=== PATIENT | male | born 1955 | race Two or more races ===

== ENCOUNTER 2016-11-11 05:28 | Inpatient (IN) | payer OTHER ==
[~2016-11-11] VITALS: Ht 167.6 cm; Wt 70.3 kg
[2016-11-11] VITALS (14 sets, daily range): BP systolic 109–126; BP diastolic 53–80
[~2016-11-11 05:28] MED LIST: IBUPROFEN600 MG ORAL; OMEPRAZOLE20 M2 ORAL
[2016-11-11] MEDS ORDERED: Thrombin 5000 units TOPIC ONE (06:43)
[2016-11-11] MEDS ORDERED: Thrombin 5000 units spray kit TOPIC ONE (06:44)
[2016-11-11] MEDS ORDERED: Gelfoam Absorbable 1gm powder pkt TOPIC ONE (06:44)
[2016-11-11] MEDS ORDERED: Bacitracin 50000 Units Vial ONE (06:44)
[2016-11-11] MEDS ORDERED: Bupivacaine w/Epi 0.5% 30ml Vial INJ ONE (06:44)
--- NOTE | 2016-11-11 06:46 | Anethesia Preoperative Eval ---
Anesthesia Pre-op PMH/ROS General Date of Evaluation: Nov 11, 2016 Time of Evaluation: 07:01 Anesthesiologist: Martita ASA Score: ASA 3 Mallampati Score Class I : Soft palate, uvula, fauces, pillars visible Class II: Soft palate, uvula, fauces visible Class III: Soft palate, base of uvula visible Class IV: Only hard plate visible Mallampati Classification: Class II Surgeon: Mary Alice Diagnosis: Back Pain Surgical Procedure: ALIF L5-S1 Anesthesia History: none Social History: current smoker Family History: no anesthesia problems Allergies: Coded Allergies: PENICILLINS (Verified Allergy, Unknown, 11/08/16) Medications: see eMAR Past Medical History Cardiovascular: Reports: other - HL Pulmonary: Reports: COPD Neurologic/Psychiatric: Reports: other - Seizure Anesthesia Pre-op Phys. Exam Physician Exam Last Vital Signs Date Time Temp Pulse Resp B/P Pulse Ox O2 Delivery O2 Flow Rate FiO2 11/11/16 06:05 99.7 77 18 121/79 97 Room Air Constitutional: NAD Neurologic: CN 2-12 intact Cardiovascular: RRR Respiratory: CTA Gastrointestinal: S/NT/ND Airway Exam Mallampati Score: Class II MO: limited ROM: limited Teeth: intact Anesthesia Pre-op A/P Risk Assessment & Plan Assessment: ASA 2 Plan: GA, BIS, Glidescope Status Change Before Surgery: No Pre-Antibiotics Dru Grams Ancef IV Given Within 1 Hr of Incision: Yes Time Given: 07:14 Isaaih Anders MD Nov 11, 2016 06:46
[2016-11-11] MEDS ORDERED: LR 1000ml 1,000 ML IVLG SCH (06:49)
--- NOTE | 2016-11-11 06:52 | Immediate Post-Op Evaluation ---
Immediate Post-Op Evalulation Immediate Post-Op Evalulation Procedure: ALIF L5-S1 Date of Evaluation: Nov 11, 2016 Time of Evaluation: 09:15 IV Fluids: 1000 LR Blood Products: 0 Estimated Blood Loss: 25 Urinary Output: 200 Blood Pressure Systolic: 126 Blood Pressure Diastolic: 61 Pulse Rate: 74 Respiratory Rate: 16 O2 Sat by Pulse Oximetry: 100 Temperature (Fahrenheit): 97.8 Pain Score (1-10): 3 Nausea: No Vomiting: No Complications 0 Patient Status: awake, reacts, patent, extubated, none Hydration Status: adequate Dru grams Ancef IV Given Within 1 Hr of Incision: Yes Time Given: 07:14 Isaiah Anders MD Nov 11, 2016 06:52
[2016-11-11] MEDS ORDERED: Zemuron 50mg/5ml Inj IV ONE (07:00)
[2016-11-11] MEDS ORDERED: Meperidine 25mg/ml Inj IV PRN (07:00)
[2016-11-11] MEDS ORDERED: Ketorolac 60mg Inj IV PRN (07:00)
[2016-11-11] MEDS ORDERED: LR 1000ml ONE (07:00)
[2016-11-11] MEDS ORDERED: NS Irrig 1000ml ONE (07:00)
[2016-11-11] MEDS ORDERED: Lidocaine 1% MPF 10mg/ml 5ml ONE (07:00)
[2016-11-11] MEDS ORDERED: Metoclopramide 10mg/2ml Inj IVP PRN (07:00)
[2016-11-11] MEDS ORDERED: LORazepam Inj 2mg/ml 1ml IV PRN (07:00)
[2016-11-11] MEDS ORDERED: Atropine Inj 1mg/10ml Syr IV PRN (07:00)
[2016-11-11] MEDS ORDERED: Midazolam 2mg/2ml Inj ONE (07:00)
[2016-11-11] MEDS ORDERED: Midazolam 2mg/2ml Inj IVP PRN (07:00)
[2016-11-11] MEDS ORDERED: Glycopyrrolate 0.2mg/ml 1ml Vial ONE (07:00)
[2016-11-11] MEDS ORDERED: Sterile Water Irrig 1000ml IRRIG ONE (07:00)
[2016-11-11] MEDS ORDERED: DiphenhydrAMINE 50mg/ml Inj IVP PRN ×2 (07:00→09:15)
[2016-11-11] MEDS ORDERED: Labetalol 5mg/ml 20ml vial IV PRN (07:00)
[2016-11-11] MEDS ORDERED: Neostigmine 1mg/ml 10ml Inj ONE (07:00)
[2016-11-11] MEDS ORDERED: Oxycodone/Acetaminophen 5-325 ORAL PRN (07:00)
[2016-11-11] MEDS ORDERED: fentaNYL 250mcg/5ml ONE (07:00)
[2016-11-11] MEDS ORDERED: Propofol 10mg/ml 100ml btl IV ONE (07:00)
[2016-11-11] MEDS ORDERED: Norco 7.5mg/325mg tab ORAL PRN (07:00)
[2016-11-11] MEDS ORDERED: Ketorolac 30mg Inj IV PRN (07:00)
[2016-11-11] MEDS ORDERED: Hydromorphone 0.5mg/0.5ml inj IVP PRN (07:00)
[2016-11-11] MEDS ORDERED: Labetalol 5mg/ml 20ml vial IV ONE (07:00)
[2016-11-11] MEDS ORDERED: fentaNYL 100 mcg/2 mL IV PRN (07:00)
[2016-11-11] MEDS ORDERED: Dexamethasone 4mg/ml vial ONE (07:00)
[2016-11-11] MEDS ORDERED: Norco 5mg/325mg tab ORAL PRN (07:00)
--- NOTE | 2016-11-11 07:04 | Pre-Procedure Note/Attestation ---
Pre-Procedure Note/Attestation Complete Prior to Procedure Planned Procedure: not applicable Procedure Narrative: For ALIF L5/S1 for L5/S1 disc degeneration with instability Indications for Procedure Pre-Operative Diagnosis: L5/S1 disc degeneration with instability Attestation I attest that I discussed the nature of the procedure; its benefits; risks and complications; and alternatives (and the risks and benefits of such alternatives ), prior to the procedure, with the patient (or the patient's legal product representative). I attest that, if there was a reasonable possibility of needing a blood transfusion, the patient (or the patient's legal product representative) was given the [facility] standardized written summary, pursuant to the [place] Blood Safety Act ([place] Health and Safety Code # 1645, as amended). I attest that I re-evaluated the patient just prior to the surgery and that there has been no change in the patient's H&P, except as documented below: ROSE MARY BARNETT Nov 11, 2016 07:04
[2016-11-11] MEDS ORDERED: ACETAMINOPHEN 1000 MG ONE (08:30)
--- NOTE | 2016-11-11 08:55 | Operative Note - PDOC ---
Operative Note Operative Note Chief Complaint: Low Bask and Left leg pain Pre-op Diagnosis: L5/S1 disc degeneration with instability Procedure: ALIF L5/S1 with Internal Fixation Post-op Diagnosis: same as pre-op Operative Findings: consistent w/pre-op dx studies Surgeon: Mary Alice Count Team Clerk: DWIGHT Pang Additional Surgeons: Gaby Small Anesthesiologist: JIMMY Barbosa Anesthesia: general Specimen: yes Complications: none Condition: stable Estimated Blood Loss: minimal Drains: none Implant(s) used?: Yes - Estella InFix: Medium 8, 3+6 degree and Estella DBROSE MARY RENTERIA Nov 11, 2016 08:55
[2016-11-11] MEDS ORDERED: Acetaminophen 650 MG SUPP RECTAL PRN (09:00)
[2016-11-11] MEDS ORDERED: Rate Change PCA 1 Each MISC PRN (09:15)
[2016-11-11] MEDS ORDERED: Naloxone 0.4mg/ml Inj IVP PRN (09:15)
[2016-11-11] MEDS ORDERED: LORazepam 1mg tab ORAL PRN (09:15)
[2016-11-11] MEDS: PCA HYDROmorphone 1mg/ml 30 ML IV PRN (09:30)
--- NOTE | 2016-11-11 10:28 | Operative Note - Dictated ---
DATE OF OPERATION: 11/11/2016 SURGEON: Jourdan Wheat M.D. CO-SURGEON: For vascular approach is Dr. Davis Small. DIGITAL PRINT OPERATOR: SHIRA Heath. ANESTHESIA: General endotracheal with arterial blood pressure monitoring Dr. Anders. PREOPERATIVE DIAGNOSIS: Disk herniation, loss of disc height, foraminal stenosis at L5-S1. POSTOPERATIVE DIAGNOSIS: Disk herniation, loss of disc height, foraminal stenosis at L5-S1. OPERATIVE PROCEDURE: Left pararectus retroperitoneal approach to the lumbar spine with vessel mobilization and retraction by Dr. Small using a table fixed reverse tip blade then an anterior annulotomy, nuclear diskectomy, partial vertebrectomy, bilateral neural foraminotomy and microneurolysis, open-reduction and internal fixation at L5-S1 using a medium size infix cage with 8 mm of height and 6+ 3 degrees of lordosis fusion using bone protein and autogenous bone. Monitoring for lower extremity vascular by pulse oximetry, use of image intensification for aid and identification level and placement of the cage. The patient was prepped and draped after induction of satisfactory general anesthesia, in the supine position. The lumbar spine at the lumbosacral level was exposed by Dr. Small. The anterior disc anulus was exposed from its anteromedial to anterolateral corner using reverse tip blades fixed to a table fixed frame. Center of the disc was marked and AP and lateral x-rays were taken to assess alignment and sagittal stability. The anterior anulus was then removed with a 10 blade and the nuclear disc substance and cartilaginous endplates at L5-S1 were sequentially removed from front to back using larger to smaller angled and straight curettes Kerrisons and pituitaries. A lordotic distraction plug was used beginning at 8 mg progressing to 12 in order to open the space and allow access progressively further posteriorly into the posterior osteophytic rim of the disc space was identified along with the PLL. There was a rolled osteophytes on the inferior posterior body 5 that was removed after releasing the PLL with a small Kerrison. A bilateral foraminotomy was done. All remnants of the disc anulus and PLL were removed. The space was measured with a 10 medium template, the center was determined and sagittal alignment was assessed. An 8 mm cage with medium foot plate was chosen 6+ 3 degrees of lordosis was added and the construct was tapped into place. Position was checked. The side struts were inserted and again the position was checked on both AP and lateral. The side struts were then cold welded. Bone protein and autogenous bone harvested during the decompression part of procedure was then placed between the 2 parallel endplates of the infix cage, which was well-positioned. The foramen was widely open at L5-S1 as compared to its appearance on plain x-ray prior to the operation the cage as well centered with good contact and both endplates with good reconstitution of disc space height. There was no significant bleeding. The wound was closed in layers including the anterior posterior rectus sheath subcutaneous and skin. The patient is placed in a bulky dressing, returned to recovery room in good condition. Jourdan Wheat M.D. DR: Kenia JOB#: [id number] CC:
--- NOTE | 2016-11-11 11:49 | Diagnostic Imaging Report ---
Indications: Back pain, lumbar fusion Technique: Procedure including fluoroscopy performed by Dr. Wheat. Portable intraoperative AP and lateral spot film images of the lower lumbar spine obtained. Findings: Comparison: None Initial image demonstrates localizing needle tip overlying the anterior margin of the L5-S1 disc space. Subsequent images demonstrate placement of fusion hardware within this disc space, well centered. IMPRESSION: Intraoperative changes as described
[2016-11-11] MEDS: ceFAZolin sod 1 GM in D5W 55 ML IV SCH ×2 (14:14→23:00)
--- NOTE | 2016-11-11 14:59 | 48 Hour Post Anesthesia Eval ---
Post Anesthesia Evaluation Procedure: ALIF L5-S1 Date of Evaluation: Nov 11, 2016 Time of Evaluation: 14:50 Blood Pressure Systolic: 111 0: 69 Pulse Rate: 91 Respiratory Rate: 18 Temperature (Fahrenheit): 96.0 O2 Sat by Pulse Oximetry: 98 Airway: patent Nausea: No Vomiting: No Pain Intensity: 2 Hydration Status: adequate Cardiopulmonary Status: Stable Mental Status/LOC: patient returned to baseline Follow-up Care/Observations: As per surgery Post-Anesthesia Complications: No anesthetic complication Follow-up care needed: N/A RAMIN KEYES M.D. Nov 11, 2016 14:59
[2016-11-11] MEDS: PCA shift volume MISC SCH ×2 (15:12→23:29)
[2016-11-12 00:01] VITALS: BP 110/53
[2016-11-12 04:00] VITALS: BP 106/59
[2016-11-12] MEDS: ceFAZolin sod 1 GM in D5W 55 ML IV SCH (06:05)
[2016-11-12] MEDS: PCA shift volume MISC SCH ×3 (07:02→23:10)
[2016-11-12 07:50] VITALS: BP 111/67
--- NOTE | 2016-11-12 09:07 | History & Physical ---
History and Physical History & Physicial 2- HP reviewed care noted d/w JOSEPHINE GIL Nov 12, 2016 09:07
--- NOTE | 2016-11-12 09:09 | General Progress Note ---
Assessment/Plan Assessment/Plan L5/S1 disc degeneration with instability ALIF L5/S1 with Internal Fixation Lumbar disc disease PLAN 1. incentive spirometry 2. SCD 3. PT evaluation and therapy 4. Hydration 5. Pain management 6. discharge once stable with outpatient follow up 7. advance diet per surgery Subjective Allergies: Coded Allergies: PENICILLINS (Verified Allergy, Unknown, 11/08/16) Subjective able to ambulate working with PT Objective Last 24 Hour Vital Signs Date Time Temp Pulse Resp B/P Pulse Ox O2 Delivery O2 Flow Rate FiO2 11/12/16 08:00 18 11/12/16 07:50 98.1 95 18 111/67 98 Room Air 11/12/16 04:00 97.7 91 20 106/59 93 Room Air 11/12/16 04:00 18 11/12/16 00:01 98.2 101 19 110/53 94 Room Air 11/12/16 00:00 18 11/11/16 20:00 100.0 109 18 109/65 95 Nasal Cannula 11/11/16 20:00 18 11/11/16 16:02 18 11/11/16 16:00 98.2 98 18 125/77 97 Nasal Cannula 11/11/16 14:59 91 18 98 11/11/16 12:00 18 11/11/16 11:53 96.0 91 18 111/69 98 Nasal Cannula 3.0 11/11/16 11:15 18 11/11/16 10:45 18 11/11/16 10:25 97.9 11/11/16 10:25 97.0 74 18 110/64 Nasal Cannula 3.0 11/11/16 10:15 97.9 75 15 116/73 16 Nasal Cannula 3.0 11/11/16 10:15 16 11/11/16 10:07 97.9 11/11/16 10:00 66 12 125/80 16 Nasal Cannula 3.0 11/11/16 10:00 12 11/11/16 10:00 97.8 11/11/16 09:50 67 11 110/65 16 Nasal Cannula 3.0 11/11/16 09:45 13 11/11/16 09:35 75 21 111/77 16 Nasal Cannula 3.0 11/11/16 09:33 11 11/11/16 09:25 69 21 114/74 100 Nasal Cannula 3.0 11/11/16 09:14 70 21 118/77 100 Simple Mask 6.0 11/11/16 09:09 73 15 123/78 100 Simple Mask 6.0 Intake and Output 11/11/16 11/12/16 19:00 07:00 Intake Total 1455 ml 755 ml Output Total 425 ml 1275 ml Balance 1030 ml -520 ml Intake IV Total 1455 ml 755 ml Output Urine Total 400 ml 1275 ml Estimated Blood Loss 25 ml Height (Feet): 5 Height (Inches): 6.00 Weight (Pounds): 155 Objective WDWN NAD clear breath sounds bilaterally without rhonchi or wheeze [id number] without MRG nontender no HSM no CCE nonfocal JOSEPHINE JJ Nov 12, 2016 09:09
[2016-11-12] MEDS: PCA HYDROmorphone 1mg/ml 30 ML IV PRN (10:15)
--- NOTE | 2016-11-12 10:25 | General Surgery Progress Note ---
General Surgery-Progress Note Subjective Procedure Performed ALIF L5/S1 with Internal Fixation Symptoms: improved Objective Last 24 Hour Vital Signs Date Time Temp Pulse Resp B/P Pulse Ox O2 Delivery O2 Flow Rate FiO2 11/12/16 08:00 18 11/12/16 07:50 98.1 95 18 111/67 98 Room Air 11/12/16 04:00 97.7 91 20 106/59 93 Room Air 11/12/16 04:00 18 11/12/16 00:01 98.2 101 19 110/53 94 Room Air 11/12/16 00:00 18 11/11/16 20:00 100.0 109 18 109/65 95 Nasal Cannula 11/11/16 20:00 18 11/11/16 16:02 18 11/11/16 16:00 98.2 98 18 125/77 97 Nasal Cannula 11/11/16 14:59 91 18 98 11/11/16 12:00 18 11/11/16 11:53 96.0 91 18 111/69 98 Nasal Cannula 3.0 11/11/16 11:15 18 11/11/16 10:45 18 11/11/16 10:25 97.9 11/11/16 10:25 97.0 74 18 110/64 Nasal Cannula 3.0 I&O Intake and Output 11/11/16 11/12/16 19:00 07:00 Intake Total 1455 ml 755 ml Output Total 425 ml 1275 ml Balance 1030 ml -520 ml Intake IV Total 1455 ml 755 ml Output Urine Total 400 ml 1275 ml Estimated Blood Loss 25 ml Dressing: dry Wound: clean Drains: none Additional Comments Patient up and walking. Needs to wear brace. PT working with patient. Not passing gas yet >> NPO. Minimal use of PASSENGER TIRE BUILDER overnight. Dr. Dumont following. ROSE MARY BARNETT Nov 12, 2016 10:25
[2016-11-12 12:00] VITALS: BP 144/70
[2016-11-12 15:50] VITALS: BP 126/78
[2016-11-12 20:00] VITALS: BP 116/81
[2016-11-13] VITALS: BP 113/73
[2016-11-13 04:00] VITALS: BP 125/78
[2016-11-13] MEDS: PCA shift volume MISC SCH (07:08)
[2016-11-13 08:14] VITALS: BP 136/76
[2016-11-13] MEDS ORDERED: Norco 7.5mg/325mg tab ORAL PRN ×2 (09:00)
[2016-11-13] MEDS ORDERED: HYDROmorphone 1mg/ml Carpuject SUBQ PRN (09:00)
[2016-11-13] MEDS ORDERED: Naloxone 0.4mg/ml Inj IVP PRN (09:00)
--- NOTE | 2016-11-13 10:14 | General Progress Note ---
Assessment/Plan Assessment/Plan L5/S1 disc degeneration with instability ALIF L5/S1 with Internal Fixation Lumbar disc disease PLAN 1. incentive spirometry 2. SCD 3. PT evaluation and therapy noted 4. wear brace 5. Pain management 6. discharge home 7. tolerating diet Subjective Allergies: Coded Allergies: PENICILLINS (Verified Allergy, Unknown, 11/08/16) Subjective able to ambulate working with PT tolerating po Objective Last 24 Hour Vital Signs Date Time Temp Pulse Resp B/P Pulse Ox O2 Delivery O2 Flow Rate FiO2 11/13/16 08:14 98.8 111 20 136/76 95 Room Air 95.0 11/13/16 08:00 18 11/13/16 04:00 99.1 95 18 125/78 97 Room Air 11/13/16 04:00 16 11/13/16 00:00 98.2 99 18 113/73 95 Room Air 11/13/16 00:00 18 11/12/16 20:06 18 11/12/16 20:00 98.6 95 16 116/81 100 Room Air 11/12/16 16:00 18 11/12/16 15:50 98.2 89 18 126/78 100 Room Air 11/12/16 12:00 18 11/12/16 12:00 97.6 91 20 144/70 98 Room Air Intake and Output 11/12/16 11/13/16 19:00 07:00 Intake Total 1200 ml 1920 ml Output Total 1400 ml 2250 ml Balance -200 ml -330 ml Intake Oral 500 ml 720 ml IV Total 700 ml 1200 ml Output Urine Total 1400 ml 2250 ml # Voids 3 Height (Feet): 5 Height (Inches): 6.00 Weight (Pounds): 155 Objective WDWN NAD clear breath sounds bilaterally without rhonchi or wheeze [id number] without MRG nontender no HSM NABS no CCE nonfocal JOSEPHINE JJ Nov 13, 2016 10:13
--- NOTE | 2016-11-13 10:31 | General Surgery Progress Note ---
General Surgery-Progress Note Subjective Procedure Performed ALIF L5/S1 with Internal Fixation Symptoms: improved, tolerating diet Objective Last 24 Hour Vital Signs Date Time Temp Pulse Resp B/P Pulse Ox O2 Delivery O2 Flow Rate FiO2 11/13/16 08:14 98.8 111 20 136/76 95 Room Air 95.0 11/13/16 08:00 18 11/13/16 04:00 99.1 95 18 125/78 97 Room Air 11/13/16 04:00 16 11/13/16 00:00 98.2 99 18 113/73 95 Room Air 11/13/16 00:00 18 11/12/16 20:06 18 11/12/16 20:00 98.6 95 16 116/81 100 Room Air 11/12/16 16:00 18 11/12/16 15:50 98.2 89 18 126/78 100 Room Air 11/12/16 12:00 18 11/12/16 12:00 97.6 91 20 144/70 98 Room Air I&O Intake and Output 11/12/16 11/13/16 19:00 07:00 Intake Total 1200 ml 1920 ml Output Total 1400 ml 2250 ml Balance -200 ml -330 ml Intake Oral 500 ml 720 ml IV Total 700 ml 1200 ml Output Urine Total 1400 ml 2250 ml # Voids 3 Dressing: dry Wound: clean Drains: none Additional Comments Patient taking regular diet. Has been released by Physical therapy and is ready for discharge to home. Dr. Julia colindres. ROSE MARY BARNETT Nov 13, 2016 10:31
[2016-11-13 12:36] VITALS: BP 123/79
--- NOTE | 2016-11-13 20:38 | Operative Note - Dictated ---
DATE OF OPERATION: 11/13/2016 VASCULAR SURGEON: Zach Small M.D. SPINE SURGEON: Jourdan Wheat M.D. PREOPERATIVE DIAGNOSIS: Degenerative disc disease. POSTOP DIAGNOSIS: Degenerative disc disease. PROCEDURE: Anterior retroperitoneal exposure of L5-S1 vertebral interspace. INDICATIONS: The patient is a very pleasant gentleman who is seen in my office prior to surgery. He has been scheduled for anterior fusion of L5-S1. He does not have any history of anterior abdominal surgery. No history of deep venous thrombosis or bleeding complications as described. He has been made aware of the risks of vascular surgery including possible need for blood transfusion, deep venous thrombosis, and bleeding complications. DESCRIPTION OF FINDINGS: A low transverse incision was used. A left retroperitoneal approach was used. There is no peritoneal or ureteral violation. There is no vascular injury. Exposure of L5-S1 was obtained below the iliac bifurcation with retraction of left iliac vessels superior and laterally. Both levels were confirmed using fluoroscopy. On completion, the peritoneum ureter intact. The iliac vessels were intact. The patient had palpable femoral and pedal pulses. Blood loss was less than 50 mL. DESCRIPTION OF PROCEDURE: The patient taken to the operative room, general anesthesia was used. IV antibiotics were given. The patient's abdomen was prepped and draped. Appropriate timeout procedures were taken. A transverse incision made just above the pubic symphysis. Flaps were raised superiorly. Anterior fascia was incised longitudinally in midline. A plane identified posterior to the left rectus abdominis and was developed posterolaterally towards the patient's left and the retroperitoneal space was entered below the arcuate line. The peritoneum and ureter were mobilized towards the patient's right exposing the left common iliac vessels. Dissection was carried on the undersurface of left common iliac vein. The median sacral artery and vein were identified and ligated with vascular clips and divided, this allowed us to mobilize the iliac vessels superiorly and laterally and exposing the anterior surface of L5 and S1. At this time, fluoroscopy was used to confirm the appropriate level and then instrumentation fusion performed at the L5 and S1, dictated separately. On completion, the retractor was gently removed. The peritoneum ureter intact. Iliac vessels are intact. Anterior fascia was closed using #1 PDS in a running fashion and the skin and subcutaneous tissue was closed using 3-0 Vicryl and 4-0 Monocryl running subcuticular closure technique. Estimated blood Loss was less than 50 mL. Complications none. Zach Small M.D. DR: MARCUS JOB#: [id number] CC: DANIEL
--- NOTE | 2016-11-14 17:18 | Discharge Summary ---
Discharge Summary Hospital Course Date of Admission Nov 11, 2016 at 05:28 Date of Discharge Nov 13, 2016 at 15:03 Admitting Diagnosis HPI Gagan Landa is a 61 year old male who was admitted on Nov 11, 2016 at 05:28 for Lumbar Inastabilization Hospital Course [id number] Discharge Discharge Disposition Patient was discharged to Home (01) Discharge Diagnoses: Jannette Tate NP Nov 14, 2016 17:18
--- NOTE | 2016-11-15 03:40 | Discharge Summary 2 SIG ---
DATE OF ADMISSION: 11/11/2016 DATE OF DISCHARGE: 11/13/2016 SURGEONS: 1. Jourdan Wheat M.D. 2. Zach Small M.D. BRIEF HOSPITAL COURSE: The patient is a 61-year-old male with disk herniation and foraminal stenosis at L5-S1, was admitted on 11/11/2016, underwent ALIF on L5-S1 with internal fixation by Dr. Wheat assisted by vascular surgeon, Dr. Small. Postoperatively, he was given pain management and underwent physical therapy and evaluation. He was given incentive spirometry and SCD for DVT prophylaxis. He was advised to wear a brace. He has been tolerating diet, and ambulating well. He was eventually discharged home. FINAL DIAGNOSES: 1. L5-S1 disk degeneration with instability. 2. Anterior lumbar interbody fusion on L5-S1 with internal fixation. 3. Lumbar disk disease. Kayden Dumont M.D. I have been assigned to dictate discharge summary on this account and I was not involved in the patient's management. Jannette Tate N.P. DR: BILL JOB#: [id number] CC: DANIEL
== END 2016-11-13 15:03 | disposition home or self-care (01) | DRG 460 ==
LOC: SDSOVERFLO 05:28 → 3E 09:56
PROC: 0SG30A0 Fusion of Lumbosacral Joint with Interbody Fusion Device, Anterior Approach, Anterior Column, Open Approach (ICD-10-PCS; principal; 2016-11-11 07:00)
DX: M51.37 Other intervertebral disc degeneration, lumbosacral region (principal); M48.07 Spinal stenosis, lumbosacral region; Z88.0 Allergy status to penicillin
CPT/HCPCS: 36415; 72020; 76001; 86850; 86900; 86901; 87081; 94003; 94150; J2250; J2405; J2710